=== PATIENT | male | born 1940 | race Caucasian/White ===

== ENCOUNTER 2017-12-16 00:46 | Emergency (ER) | payer OTHER, BC ==
[~2017-12-16] VITALS: Ht 170.2 cm; Wt 77.6 kg
[2017-12-16] MEDS ORDERED: PROTONIX40 M1 PO (04:03)
[2017-12-16] MEDS ORDERED: PREDNISONE 20 M20 MG PO (04:03)
[2017-12-16 04:43] VITALS: BP 117/58
== END 2017-12-16 04:40 | disposition home or self-care (01) ==
LOC: ER 00:46
DX: J45.909 Unspecified asthma, uncomplicated (principal); K21.9 Gastro-esophageal reflux disease without esophagitis; E78.00 Pure hypercholesterolemia, unspecified; I10 Essential (primary) hypertension